=== PATIENT | female | born 1990 | race Caucasian/White ===

== ENCOUNTER 2016-12-01 13:08 | Emergency (ER) | payer BC ==
[~2016-12-01] VITALS: Ht 172.7 cm; Wt 137.0 kg
[2016-12-01 13:13] VITALS: TEMP 36.8; Ht 172.7 cm; Wt 137.0 kg
[2016-12-01] MEDS ORDERED: OXYC1TAB3 PO (13:42)
[2016-12-01] MEDS ORDERED: BUSP15TA70 PO (13:54)
[2016-12-01] MEDS ORDERED: VENL75CA PO (13:54)
[2016-12-01 14:07] VITALS: BP 163/95; PULSE 93; O2SAT 95
--- NOTE | 2016-12-01 16:41 | EMERGENCY ROOM VISIT NOTE ---
History First contact with patient: 13:24 Chief Complaint: HIP PAIN Stated Complaint: SEVERE LEFT HIP REDDY AND LOWER BACK PAIN History of Present Illness The patient is a 26 year old female who presents to the Emergency Room with complaints of left lower back pain extending into the left buttock. The patient reports that the pain started yesterday while she was walking her dog outside. She reports that the pain progressively worsened throughout last evening. The patient has taken Aleve without any significant relief, and rates her discomfort an 8 out of 10. She denies any significant history of chronic lower back pain or other back injuries. She currently denies any bladder/bowel incontinence/difficulties, lower extremity weakness or saddle anesthesias. She denies any other recent injury. She rates her discomfort an 8 out of 10. Review of Systems 10 system review was performed and was negative except for pertinent positives and negatives as indicated in history of present illness Past Medical/Surgical History Medical Problems: (1) Anxiety (2) Morbid obesity with BMI of 45.0-49.9, adult Surgical Problems: (1) No history of previous surgery Family History FH: cancer FH: diabetes mellitus FH: heart disease FH: hypertension FH: seizures Social History Smoking Status: Never Smoker Alcohol Use: none Marital Status: single Housing Status: lives with family Occupation Status: employed Current/Historical Medications Scheduled Buspirone Hcl (Buspar), 5 MG PO QPM Venlafaxine Hcl (Effexor Xr), 75 MG PO QAM Scheduled PRN Oxycodone Ir (Roxicodone Ir), 1-2 TAB PO Q4H PRN for Pain Allergies Coded Allergies: No Known Allergies (Unverified , 12/01/16) Physical Exam Vital Signs Date Time Temp Pulse Resp B/P Pulse Ox O2 Delivery O2 Flow Rate FiO2 12/01/16 14:07 93 18 163/95 95 Room Air 12/01/16 13:13 36.8 108 20 169/93 98 Room Air Physical Exam CONSTITUTIONAL: Morbidly obese female, alert and oriented X 3 with positive affect. Patient appears in mild discomfort from pain. HEENT: Normocephalic, atraumatic. Pupils equal, round and reactive. NECK: Full active range of motion without discomfort. RESPIRATORY: Clear to auscultation bilaterally with no wheezing, crackles, rhonchi or stridor. CARDIOVASCULAR: Regular rate and rhythm with no murmurs, rubs or gallops. GASTROINTESTINAL: Bowel sounds present in all quadrants. Abdomen is protuberant but soft and nontender to palpation. MUSCULOSKELETAL: Examination shows diffuse tenderness to palpation through the left lower lumbar paraspinous muscle, SI joint and sciatic notch. Negative logroll. Positive straight leg raise. No popliteal masses. Pedal pulses are intact. Ankle plantar/dorsiflexion strength is 5 out of 5 and symmetric bilaterally. INTEGUMENTARY: No dermatomal rash in the lower back or left lower extremity. NEUROLOGIC: No focal neurologic deficits noted. Left foot and toes are sensory intact. Deep tendon reflexes are 2+ and symmetric bilaterally. Medical Decision & Procedures ED Course Patient history and physical exam were performed. Nurse's notes were reviewed. Vital signs were reviewed, showing an elevated blood pressure of 16 9/93. Clinical exam is consistent with an acute sciatica. An educational handout was provided. The patient was encouraged to avoid sitting for long periods of time , or heavy lifting. She was encouraged to actively apply ice to areas of discomfort. Ibuprofen and Tylenol in alternating fashion for baseline pain relief. The patient was provided a prescription for OxyIR 5 mg, dispensed #15 with no refills. No drinking alcohol or driving while taking OxyIR. The patient was instructed to follow-up with her PCP in 3-5 days for reevaluation. I did explain symptoms for which she should seek further emergent reevaluation, including symptoms typical for cauda equina syndrome. The patient was happy with plan of care, voiced understanding of all discharge instructions, refused any analgesics while in the emergency department, and rated her pain a 6 out of 10 at the conclusion of my exam. Medical Decision As indicated in the previous section, history and clinical exam were consistent with an acute sciatica. Her clinical exam is not suggestive of an emergent compressive neuropathy such as cauda equina syndrome. She gives no history of trauma to warrant an x-ray, and therefore I do not suspect acute fracture or discitis. Impression Primary Impression: Left-sided low back pain with sciatica Departure Information Dispostion Home / Self-Care Prescriptions Oxycodone Ir (Roxicodone Ir) 5 Mg Tab 1-2 TAB PO Q4H Y for Pain, #15 TAB For Initial Treatment Prov: Sohan Chatterjee PA 12/01/16 Forms HOME CARE DOCUMENTATION FORM, IMPORTANT VISIT INFORMATION Patient Instructions My [facility], ED Sciatica Additional Instructions Intermittently apply ice to lower back and buttock. Ibuprofen 800 mg and/or Tylenol 1000 mg every 8 hours. You may also alternate these medications for more effective pain relief: Ibuprofen --4 HRS--> Tylenol --4 HRS--> ibuprofen --4 HRS--> Tylenol .... OxyIR if needed for worse pain. Do not drink alcohol or drive while taking OxyIR. Follow-up with your family doctor for recheck in the next 3-5 days. FOR WORK: The patient was in our emergency department on 12/01/16 from 1 to 2 PM Problem Qualifiers Primary Impression: Left-sided low back pain with sciatica Chronicity: acute Sciatica laterality: sciatica of left side Qualified Codes: M54.42 - Lumbago with sciatica, left side
== END 2016-12-01 14:08 | disposition home or self-care (01) ==
LOC: C.EDB 13:10
DX: M54.42 Lumbago with sciatica, left side (principal); E66.01 Morbid (severe) obesity due to excess calories; F41.9 Anxiety disorder, unspecified; Z83.3 Family history of diabetes mellitus; Z82.49 Family history of ischemic heart disease and other diseases of the circulatory system; Z82.0 Family history of epilepsy and other diseases of the nervous system; Z79.899 Other long term (current) drug therapy